=== PATIENT | male | born 1945 | race Caucasian/White ===

== ENCOUNTER → 2016-08-01 | Outpatient (CLI) | payer MEDICARE, BC | LOC: MW.CHORTHO 08:00 | PROVIDERS: ATTEND Physician Assistant | DX: M75.41 Impingement syndrome of right shoulder (principal); M75.42 Impingement syndrome of left shoulder; M12.812 Other specific arthropathies, not elsewhere classified, left shoulder; M12.811 Other specific arthropathies, not elsewhere classified, right shoulder | CPT/HCPCS: 20610-50; G0463; J1040 ==

== ENCOUNTER → 2016-08-06 | Outpatient (CLI) | payer MEDICARE, BC | LOC: MW.CHUR 11:16 | PROVIDERS: ATTEND Urology | DX: N42.9 Disorder of prostate, unspecified (principal); N40.0 Benign prostatic hyperplasia without lower urinary tract symptoms | CPT/HCPCS: 36415; 84153; G0463 ==

== ENCOUNTER 2016-09-24 09:51 | Observation (INO) | payer MEDICARE, BC ==
[2016-09-24] MEDS ORDERED: Sodium Chloride 0.9% 1,000 ML IV ONE ×2 (10:22→12:45)
[2016-09-24 11:15] LABS: CHLORIDE,CL 109 mmol/L (98-110); SODIUM,NA 140 mmol/L (136-146)
--- NOTE | 2016-09-24 11:53 | EDM.PDOC ---
ED HPI GENERAL MEDICAL PROBLEM - General Chief Complaint: Gastrointestinal Problem Stated Complaint: BLEEDING FROM RECTUM Time Seen by Provider: 09/24/16 11:30 Source of Information: Reports: Patient History Limitations: Reports: No Limitations - History of Present Illness INITIAL COMMENTS - FREE TEXT/NARRATIVE: History of present illness: 70-year-old male comes in complaining of rectal bleeding. Patient indicates that he started having bloody stools, and that he is on medicine that could be causing this. Patient is on Plavix and does take aspirin daily secondary to stents. Review of systems: As per history of present illness and below otherwise all systems reviewed and negative. Past medical history: As per history of present illness and as reviewed below otherwise noncontributory. Surgical history: As per history of present illness and as reviewed below otherwise noncontributory. Social history: No reported history of drug or alcohol abuse. Family history: As per history of present illness and as reviewed below otherwise noncontributory. Physical exam: HEENT: Atraumatic, normocephalic, pupils reactive, negative for conjunctival pallor or scleral icterus, mucous membranes moist, throat clear, neck supple, nontender, trachea midline. Lungs: Clear to auscultation, breath sounds equal bilaterally, chest nontender. Heart: S1S2, regular, negative for clicks, rubs, or JVD. Abdomen: Soft, nondistended, nontender. Negative for masses or hepatosplenomegaly. Negative for costovertebral tenderness. Pelvis: Stable nontender. Genitourinary: Deferred. Rectal: Deferred. Extremities: Atraumatic, negative for cords or calf pain. Neurovascular unremarkable. Neuro: Awake, alert, oriented. Cranial nerves II through XII unremarkable. Cerebellum unremarkable. Motor and sensory unremarkable throughout. Exam nonfocal. Assessment is benign save the subjective complaint as noted in history of present illness. Patient ability to the bathroom a hat was placed and melena's stool and radha blood obtained. Discussed with patient if this was normal patient seemed confused and indicated he had not had a bowel movement. Patient is anticoagulated secondary to stents 3. Diagnostics: [CBC, CMP, type and screen] Therapeutics: [] Impression: [GI bleed] Plan: [Admit to hospitalist consult surgery] Definitive disposition and diagnosis as appropriate pending reevaluation and review of above. - Related Data Allergies Allergy/AdvReac Type Severity Reaction Status Date / Time No Known Allergies Allergy Verified 09/24/16 10:36 Home Meds: Home Meds Atenolol [Atenolol] 1 tab PO DAILY 01/13/16 [History] Clopidogrel Bisulfate [Clopidogrel] 1 tab PO DAILY 01/13/16 [History] Finasteride [Proscar] 1 tab PO DAILY 01/13/16 [History] Isosorbide Mononitrate [Imdur] 1 tab PO DAILY 01/13/16 [History] Lisinopril 1 tab PO DAILY 01/13/16 [History] Simvastatin [Zocor] 1 tab PO BEDTIME 01/13/16 [History] Tamsulosin [Flomax] 1 tab PO DAILY 01/13/16 [History] Aspirin [Lucia Chewable] 1 tab PO DAILY 09/24/16 [History] Past Medical History Cardiovascular History: Reports: High Cholesterol, Hypertension Genitourinary History: Reports: BPH - Past Surgical History Cardiovascular Surgical History: Reports: Coronary Artery Stent Social & Family History - Family History Family Medical History: Noncontributory - Tobacco Use Smoking Status *Q: Current Every Day Smoker Years of Tobacco use: 50 Packs/Tins Daily: 1 Used Tobacco, but Quit: No Second Hand Smoke Exposure: Yes - Caffeine Use Caffeine Use: Reports: Coffee Caffeine Use Comment: 3 cups avg per day - Recreational Drug Use Recreational Drug Use: No ED ROS GENERAL - Review of Systems Review Of Systems: See Below (See history of present illness) ED EXAM, GI/ABD - Physical Exam Exam: See Below (See history of present illness) Course - Vital Signs Last Recorded V/S: Last Vital Signs Temp 36.4 C 09/24/16 10:36 Pulse 61 09/24/16 10:36 Resp 18 09/24/16 10:36 BP 103/59 L 09/24/16 10:36 Pulse Ox 97 09/24/16 10:36 - Orders/Labs/Meds Orders: Active Orders 24 hr Category Date Time Status TYPE AND SCREEN [BBK] Stat Lab 09/24/16 10:37 Results Labs: Laboratory Tests 09/24/16 09/24/16 09/24/16 Range/Units 10:37 10:37 10:37 WBC 5.87 (4.0-11.0) K/uL RBC 4.46 L (4.50-5.90) M/uL Hgb 13.7 (13.0-17.0) g/dL Hct 41.4 (38.0-50.0) % MCV 92.8 (80.0-98.0) fL MCH 30.7 (27.0-32.0) pg MCHC 33.1 (31.0-37.0) g/dL RDW Std Deviation 50.3 (28.0-62.0) fl RDW Coeff of Aidee 15 (11.0-15.0) % Plt Count 165 (150-400) K/uL MPV 9.80 (7.40-12.00) fL Neut % (Auto) 64.3 (48.0-80.0) % Lymph % (Auto) 25.9 (16.0-40.0) % [place] % (Auto) 7.7 (0.0-15.0) % Eos % (Auto) 1.4 (0.0-7.0) % Baso % (Auto) 0.7 (0.0-1.5) % Neut # (Auto) 3.8 (1.4-5.7) K/uL Lymph # (Auto) 1.5 (0.6-2.4) K/uL [place] # (Auto) 0.5 (0.0-0.8) K/uL Eos # (Auto) 0.1 (0.0-0.7) K/uL Baso # (Auto) 0.0 (0.0-0.1) K/uL Nucleated RBC % 0.0 /100WBC Nucleated RBCs # 0 K/uL Sodium 140 (136-146) mmol/L Potassium 4.3 (3.5-5.1) mmol/L Chloride 109 (98-110) mmol/L Carbon Dioxide 26 (21-31) mmol/L BUN 22 (6.0-23.0) mg/dL Creatinine 0.8 (0.6-1.5) mg/dL Est Cr Clr Drug Dosing 88.90 mL/min Estimated GFR (MDRD) > 60.0 ml/min Glucose 97 (60-110) mg/dL Calcium 8.3 L (8.8-10.8) mg/dL Total Bilirubin 0.3 (0.1-1.5) mg/dL AST 19 (5-40) IU/L ALT 17 (8-54) IU/L Alkaline Phosphatase 83 (40-150) Total Protein 6.0 (6.0-8.0) g/dL Albumin 3.7 (3.4-4.8) g/dL Globulin 2.3 (2.0-3.5) g/dL Albumin/Globulin Ratio 1.6 (1.3-2.8) Blood Type O POSITIVE Meds: Medications Discontinued Medications Generic Name Dose Route Start Last Admin Trade Name Sdq PRN Reason Stop Dose Admin Sodium Chloride 1,000 mls @ 999 mls/hr 09/24/16 10:22 09/24/16 10:56 Normal Saline IV 09/24/16 11:22 999 mls/hr STAT ONE Administration Departure - Departure Time of Disposition: 11:54 Disposition: Admitted As Inpatient 64 Condition: Good Clinical Impression: Bleeding per rectum - Discharge Information Forms: ED Department Discharge - My Orders Last 24 Hours: My Active Orders 09/24/16 10:37 TYPE AND SCREEN [BBK] Stat - Assessment/Plan Last 24 Hours: My Active Orders 09/24/16 10:37 TYPE AND SCREEN [BBK] Stat
[2016-09-24] MEDS ORDERED: Pantoprazole 40 MG Vial IVPUSH ONE (12:43)
[2016-09-24] MEDS ORDERED: Pantoprazole 80 MG in Sodium Chloride 0.9% 100 ML IV SCH ×3 (12:45→21:00)
--- NOTE | 2016-09-24 14:44 | PCM.HP ---
<Colleen Vásquez - Last Filed: 09/24/16 15:15> H&P History of Present Illness - General Date of Service: 09/24/16 - History of Present Illness Initial Comments - Free Text/Narative: 70 yo male with history of CAD s/p 3 stent placement who is taking plavix and asa admitted for GIB. He states around 10 pm he had noticed rectal bleeding that was persistent. This is his first episode. He smokes 1 ppd of cigarettes for the past 50 years. He does not drink alcohol or use illicit drugs. In the ED he was started on IVF and protonix drip. His Hb 13.7 Hct 41.4. bmp unremakable. He does not have fever, chills, pallor, chest pain, palpitations, sob, n/v/d or other pertinent symptoms. - Related Data Allergies/Adverse Reactions: Allergies Allergy/AdvReac Type Severity Reaction Status Date / Time No Known Allergies Allergy Verified 09/24/16 10:36 Home Medications: Home Meds Atenolol [Atenolol] 25 mg PO DAILY 01/13/16 [History] Clopidogrel Bisulfate [Clopidogrel] 75 mg PO DAILY 01/13/16 [History] Finasteride [Proscar] 5 mg PO DAILY 01/13/16 [History] Isosorbide Mononitrate [Imdur] 30 mg PO DAILY 01/13/16 [History] Lisinopril 5 mg PO DAILY 01/13/16 [History] Simvastatin [Zocor] 10 mg PO BEDTIME 01/13/16 [History] Tamsulosin [Flomax] 0.4 mg PO DAILY 01/13/16 [History] Aspirin [Lucia Chewable] 81 mg PO DAILY 09/24/16 [History] Past Medical History HEENT History: Reports: Impaired Vision Cardiovascular History: Reports: High Cholesterol, Hypertension Genitourinary History: Reports: BPH - Past Surgical History Cardiovascular Surgical History: Reports: Coronary Artery Stent Social & Family History - Family History Family Medical History: Noncontributory - Tobacco Use Smoking Status *Q: Current Every Day Smoker Years of Tobacco use: 50 Packs/Tins Daily: 1 Used Tobacco, but Quit: No Second Hand Smoke Exposure: No - Caffeine Use Caffeine Use: Reports: Coffee Caffeine Use Comment: 3 cups avg per day - Recreational Drug Use Recreational Drug Use: No H&P Review of Systems - Review of Systems: Review Of Systems: See Below General: Reports: No Symptoms HEENT: Reports: No Symptoms Pulmonary: Reports: No Symptoms Cardiovascular: Reports: No Symptoms Gastrointestinal: Reports: Bloody Stool, Hematochezia. Denies: Abdominal Pain, Anorexia, Black Stool, Constipation, Diarrhea, Hematemesis, Melena Genitourinary: Reports: No Symptoms Musculoskeletal: Reports: No Symptoms Skin: Reports: No Symptoms Psychiatric: Reports: No Symptoms Neurological: Reports: No Symptoms Exam - Exam Exam: See Below - Vital Signs Vital Signs: Last Vital Signs Temp 96 F 09/24/16 14:00 Pulse 47 L 09/24/16 14:00 Resp 18 09/24/16 14:00 BP 141/66 H 09/24/16 14:00 Pulse Ox 97 09/24/16 14:00 Weight: 75.07 kg - Exam General: Alert, Oriented HEENT: Conjunctiva Clear, EOMI Neck: Supple, Trachea Midline Lungs: Normal Respiratory Effort, Decreased Breath Sounds Cardiovascular: Regular Rate, Regular Rhythm Abdomen: Normal Bowel Sounds, Soft Back Exam: Normal Inspection, Full Range of Motion Extremities: Normal Inspection Skin: Warm, Dry, Intact Neurological: Cranial Nerves Intact - Patient Data Result Diagrams: 09/24/16 10:37 09/24/16 10:37 *Q Meaningful Use (ADM) - VTE *Q VTE Criteria *Q: - Stroke *Q Stroke Criteria *Q: - AMI *Q AMI Criteria *Q: Problem List Initiated/Reviewed/Updated: Yes Orders Last 24hrs: Active Orders 24 hr Category Date Time Status Pantoprazole [ProTONIX IV] 80 mg Med 09/24/16 13:00 Active Sodium Chloride 0.9% [Normal Saline] 100 ml IV Q10H Sodium Chloride 0.9% [Normal Saline] 1,000 ml Med 09/24/16 12:45 Active IV STAT Medication Orders Sodium Chloride (Normal Saline) 1,000 mls @ 100 mls/hr IV STAT ONE Stop: 09/24/16 22:44 Last Admin: 09/24/16 12:59 Dose: 100 mls/hr Pantoprazole Sodium 80 mg/ (Sodium Chloride) 100 mls @ 10 mls/hr IV Q10H [facility] Last Admin: 09/24/16 13:23 Dose: 10 mls/hr Assessment/Plan Comment:: 70 yo male admitted for GIB NPO continue IVF and protonix Hold Plavix and aspirin may resume home medications General surgery consulted for possible colonoscopy: dr. RIVERA <Brayan Sutherland - Last Filed: 09/24/16 18:24> H&P History of Present Illness - History of Present Illness Initial Comments - Free Text/Narative: I performed a history and physical examination of the patient and I have discussed the management with the resident. I have reviewed the residents note and agree with the documented findings and plan of care. Exam - Vital Signs Vital Signs: Last Vital Signs Temp 35.6 C 09/24/16 15:57 Pulse 48 L 09/24/16 15:57 Resp 20 09/24/16 15:57 BP 114/70 09/24/16 15:57 Pulse Ox 97 09/24/16 15:57 - Patient Data Result Diagrams: 09/24/16 10:37 09/24/16 10:37 *Q Meaningful Use (ADM) - VTE *Q VTE Criteria *Q: - Stroke *Q Stroke Criteria *Q: - AMI *Q AMI Criteria *Q: Orders Last 24hrs: Active Orders 24 hr Category Date Time Status Patient Status [ADT] Routine ADT 09/24/16 14:54 Active Antiembolic Devices [RC] PER UNIT ROUTINE Care 09/24/16 14:53 Active Antiembolic Devices [RC] PER UNIT ROUTINE Care 09/24/16 14:58 Active Notify Provider Consults [RC] ASDIRECTED Care 09/24/16 14:58 Active Oxygen Therapy [RC] PRN Care 09/24/16 14:49 Active Oxygen Therapy [RC] PRN Care 09/24/16 14:54 Active Pulse Oximetry [RC] PRN Care 09/24/16 14:51 Active Up ad Nelly [RC] ASDIRECTED Care 09/24/16 14:54 Active VTE/DVT Education [RC] PER UNIT ROUTINE Care 09/24/16 14:54 Active Vital Signs [RC] Q4H Care 09/24/16 14:49 Active Consult to Physician [CONS] Routine Cons 09/24/16 14:54 Active Nothing per Oral Now Diet [DIET] Diet 09/24/16 Dinner Active BASIC METABOLIC PANEL,BMP [CHEM] AM Lab 09/25/16 05:11 Ordered BASIC METABOLIC PANEL,BMP [CHEM] AM Lab 09/26/16 05:11 Ordered BASIC METABOLIC PANEL,BMP [CHEM] AM Lab 09/27/16 05:11 Ordered CBC WITH AUTO DIFF [HEME] AM Lab 09/25/16 05:11 Ordered CBC WITH AUTO DIFF [HEME] AM Lab 09/26/16 05:11 Ordered CBC WITH AUTO DIFF [HEME] AM Lab 09/27/16 05:11 Ordered CBC WITH AUTO DIFF [HEME] Routine Lab 09/24/16 19:00 Ordered Acetaminophen [Tylenol] Med 09/24/16 14:48 Active 650 mg PO Q4H PRN Atenolol [Tenormin] Med 09/25/16 09:00 Active 25 mg PO DAILY Finasteride [Proscar] Med 09/25/16 09:00 Active 5 mg PO DAILY Isosorbide Mononitrate [Imdur] Med 09/25/16 09:00 Active 30 mg PO DAILY Levofloxacin/Dextrose 5%-Water [Levaquin in D5W 500 MG/ Med 09/24/16 17:15 Active 100 ML] 500 mg Premix Bag 1 bag IV Q24H Lisinopril [Prinivil] Med 09/25/16 09:00 Active 5 mg PO DAILY Morphine Med 09/24/16 14:54 Active 2 mg IVPUSH Q2H PRN Ondansetron [Zofran ODT] Med 09/24/16 14:54 Active 4 mg PO Q6H PRN Ondansetron [Zofran] Med 09/24/16 14:48 Active 4 mg IVPUSH Q4H PRN Pantoprazole [ProTONIX IV] 80 mg Med 09/24/16 23:00 Active Sodium Chloride 0.9% [Normal Saline] 100 ml IV Q10H Sodium Chloride 0.9% [Normal Saline] 1,000 ml Med 09/24/16 15:00 Active IV ASDIRECTED Sodium Chloride 0.9% [Normal Saline] 1,000 ml Med 09/24/16 12:45 Active IV STAT Tamsulosin [Flomax] Med 09/25/16 09:00 Active 0.4 mg PO DAILY Temazepam [Restoril] Med 09/24/16 14:54 Active 15 mg PO BEDTIME PRN metroNIDAZOLE/Normal Saline [Flagyl 500 MG in NS 100 ML Med 09/24/16 17:15 Active ] 500 mg Premix Bag 1 bag IV Q6H oxyCODONE Med 09/24/16 14:54 Active 5 mg PO Q4H PRN Sequential Compression Device [OM.PC] Per Unit Routine Oth 09/24/16 14:52 Ordered Sequential Compression Device [OM.PC] Per Unit Routine Oth 09/24/16 14:56 Ordered VTE Pharmacological Contraindications [AST] Per Unit Oth 09/24/16 14:54 Ordered Routine Resuscitation Status Routine Resus Stat 09/24/16 14:54 Ordered Medication Orders Acetaminophen (Tylenol) 650 mg PO Q4H PRN PRN Reason: Pain (Mild 1-3)/fever Atenolol (Tenormin) 25 mg PO DAILY [facility] Finasteride (Proscar) 5 mg PO DAILY [facility] Sodium Chloride (Normal Saline) 1,000 mls @ 100 mls/hr IV STAT ONE Stop: 09/24/16 22:44 Last Admin: 09/24/16 12:59 Dose: 100 mls/hr Sodium Chloride (Normal Saline) 1,000 mls @ 125 mls/hr IV ASDIRECTED [facility] Last Admin: 09/24/16 15:27 Dose: 125 mls/hr Pantoprazole Sodium 80 mg/ (Sodium Chloride) 100 mls @ 10 mls/hr IV Q10H [facility] Levofloxacin/Dextrose 500 mg/ (Premix) 100 mls @ 100 mls/hr IV Q24H [facility] Metronidazole 500 mg/ Premix 100 mls @ 100 mls/hr IV Q6H [facility] Last Admin: 09/24/16 17:32 Dose: 100 mls/hr Isosorbide Mononitrate (Imdur) 30 mg PO DAILY [facility] Lisinopril (Prinivil) 5 mg PO DAILY [facility] Morphine Sulfate (Morphine) 2 mg IVPUSH Q2H PRN PRN Reason: Pain (severe 7-10) Stop: 09/25/16 14:57 Ondansetron HCl (Zofran) 4 mg IVPUSH Q4H PRN PRN Reason: Nausea Ondansetron HCl (Zofran Odt) 4 mg PO Q6H PRN PRN Reason: nausea, able to take PO Oxycodone HCl (Oxycodone) 5 mg PO Q4H PRN PRN Reason: Pain (moderate 4-6) Tamsulosin HCl (Flomax) 0.4 mg PO DAILY [facility] Temazepam (Restoril) 15 mg PO BEDTIME PRN PRN Reason: Sleep
[2016-09-24] MEDS ORDERED: Ondansetron 4 MG/2 ML SDV IVPUSH PRN (14:48)
[2016-09-24] MEDS ORDERED: Acetaminophen 325 MG Tab PO PRN (14:48)
[2016-09-24] MEDS ORDERED: oxyCODONE 5 MG Tab PO PRN (14:54)
[2016-09-24] MEDS ORDERED: Temazepam 15 MG Cap PO PRN (14:54)
[2016-09-24] MEDS ORDERED: Morphine 2 MG/ML Syringe IVPUSH PRN (14:54)
[2016-09-24] MEDS ORDERED: Ondansetron 4 MG Tab.DIS PO PRN (14:54)
[2016-09-24] MEDS: Sodium Chloride 0.9% 1,000 ML IV SCH ×2 (15:27→21:35)
[2016-09-24] MEDS ORDERED: Levofloxacin/Dextrose 5%-Water 500 MG in Premix Bag 1 BAG IV SCH (17:15)
[2016-09-24] MEDS: metroNIDAZOLE/Normal Saline 500 MG in Premix Bag 1 BAG IV SCH ×2 (17:32→22:41)
[2016-09-24] MEDS: Pantoprazole 80 MG in Sodium Chloride 0.9% 100 ML IV SCH (22:41)
--- NOTE | 2016-09-25 00:27 | CONS ---
DATE OF CONSULTATION: 09/24/2016 DATE OF : 1945 PRIMARY CARE PHYSICIAN: Rui Packer MD Consult was called. The patient was seen shortly after concerning present GI bleeding. HISTORY OF PRESENT ILLNESS: The patient is a 70-year-old gentleman, who has significant coronary artery disease and with stent placement x3. He is currently taking Plavix and aspirin. He was noted to have rectal bleeding 12 hours ago and the patient remarked it is a bright red blood per rectum, and denied any pain whatsoever. No abdominal pain. No chest pain, no rectal pain, and never having happened before. On a pain scale of 1-10, the patient's pain is zero and no radiation, and has never happened before. The patient did not have any shortness of breath, chest pain, or syncope. The patient is totally awake throughout the whole process and totally aware of what is going on. Twelve hours later, bleeding not stopped and the patient seek help in the emergency room. In the emergency room, his blood was worked up and the patient was subsequently admitted to the hospitalist service and Surgery was then consulted. The patient currently denied any pain whatsoever, denied short of breath, and denied prior episode. PAST MEDICAL HISTORY: Significant for no diabetes, CT, CVA, or hypertension. The patient does have cardiac history and had stent x3 placement. PAST SURGICAL HISTORY: No abdominal surgery. ALLERGIES: Please refer nursing for details. MEDICATION: Please refer nursing for details. PHYSICAL EXAMINATION: GENERAL: A very pleasant, nice gentleman, in no acute distress. HEENT: Normocephalic, atraumatic. Sclerae anicteric. LUNGS: Clear to auscultation. HEART: Regular rate and rhythm. ABDOMEN: Soft, nondistended. No pulsating, tender midline abdominal structure. No surgical scar. Small umbilical hernia. Active bowel sounds in all 4 quadrants. SKIN: Intact and nontender. LABORATORY DATA: Upon consultation, H and H are 11 and 43 and platelets are 167. INR is pending. IMPRESSION: Bright red blood per rectum, likely diverticular bleeding on top of Plavix and aspirin, and patient will likely continue the bleeding and/or could be upper gastrointestinal bleeding because of Plavix and aspirin. At the time of examination and history, likely is lower gastrointestinal bleeding. The patient was seen and admitted to the hospital, had two more large bloody bowel movement and that is also classic for diverticular bleeding. We will treat as bleeding protocol, two large-bore IV access and avoid all anticoagulation. Check H and H every 12 hours and check strict in and out and weight of patient, aggressive resuscitation, type and cross 2 RBC ready and there are also some studies suggest maybe plasma. Two units may be able to help to reverse Plavix or aspirin, which help to stop the bleeding and all in aspects if bleeding is not able to be stopped and after 6 units of transfusion, the patient will probably need surgery and since we are not able to localize the bleeding is from the left segment or right segment or transverse segment, the patient would benefit to have a total colectomy. So situation like that the patient may benefit to transfer to a tertiary care center where diagnostic imaging can be done with either bleeding scan or tag RBC and to localize the bleeding segment or even embolize the bleeding segment. All the plan has been discussed with the patient. For a time being, we will try to hold off aspirin and Plavix and continue GI bleeding protocol and follow the patient with you closely. Plan has been discussed with Dr. Brayan Sutherland, the primary care provider as well as the hospitalist attending. Thanks for the consult and reference and to take care of this nice gentleman. CHAVEZ / CARLITOS /[id number]
[2016-09-25 02:15] LABS: CHLORIDE,CL 112 mmol/L (98-110); SODIUM,NA 140 mmol/L (136-146)
[2016-09-25] MEDS: metroNIDAZOLE/Normal Saline 500 MG in Premix Bag 1 BAG IV SCH (05:07)
--- NOTE | 2016-09-25 08:28 | PCM.DCSUM1 ---
<Colleen Vásquez - Last Filed: 09/25/16 08:32> Discharge Summary - Hospital Course Free Text/Narrative:: 70-year-old male with significant CAD status post 3 stent placement admitted for GI bleed most likely diverticular bleed. He has been having episodes of persistent rectal bleeding for past 2 days that has not stopped. He did not have any fever or, chills, abdominal pain, nausea vomiting diarrhea, chest pain , shortness of breath, palpitations, pallor, dizziness, syncope, lightheadedness or other pertinent symptoms. He has been on Plavix and aspirin which was held. On admission his hemoglobin over hematocrit was 13.7 and 41.4. He was kept n.p.o., Protonix IV and IV fluids initiated along with IV cipro and IV flagyl. General surgery consult in for GI bleed. They recommended to check CBC every 12 hours and possibly transfer to tertiary care for tagged RBC or leading scan to determine the source of bleeding if it's persistent. His vital signs remained stable and his hemoglobin this morning is 10.2. He is being transfused 2 units of RBCs and transferred to higher level of care. Patient and family has requested [facility] [place]. Dr. daniel the hosptilist kindly accepted the patient. - Discharge Data Discharge Date: 09/25/16 Discharge Disposition: DC/Tfer to Acute Hospital 02 Condition: Fair - Patient Summary/Data Consults: Consultations 09/24/16 14:54 Consult to Physician [CONS] Routine - Discharge Plan Home Medications: Home Meds Atenolol [Atenolol] 25 mg PO DAILY 01/13/16 [History] Clopidogrel Bisulfate [Clopidogrel] 75 mg PO DAILY 01/13/16 [History] Finasteride [Proscar] 5 mg PO DAILY 01/13/16 [History] Isosorbide Mononitrate [Imdur] 30 mg PO DAILY 01/13/16 [History] Lisinopril 5 mg PO DAILY 01/13/16 [History] Simvastatin [Zocor] 10 mg PO BEDTIME 01/13/16 [History] Tamsulosin [Flomax] 0.4 mg PO DAILY 01/13/16 [History] Aspirin [Lucia Chewable] 81 mg PO DAILY 09/24/16 [History] Forms: ED Department Discharge Referrals: Rui Packer MD [Primary Care Provider] - - General Info Date of Service: 09/25/16 Functional Status: Reports: ambulating, urinating - Review of Systems General: Reports: No Symptoms HEENT: Reports: no symptoms Pulmonary: Reports: no symptoms Cardiovascular: Reports: No Symptoms Gastrointestinal: Reports: No symptoms Genitourinary: Reports: no symptoms Musculoskeletal: Reports: no symptoms Skin: Reports: no symptoms Neurological: Reports: No Symptoms Psychiatric: Reports: no symptoms - Patient Data Vitals - Most Recent: Last Vital Signs Temp 97.6 F 09/25/16 04:00 Pulse 68 09/25/16 04:00 Resp 16 09/25/16 04:00 BP 126/75 09/25/16 04:00 Pulse Ox 96 09/25/16 04:00 Weight - Most Recent: 74.48 kg I&O - Last 24 hours: Intake & Output 09/24/16 09/25/16 09/25/16 22:59 06:59 14:59 Intake Total 1400 200 Output Total 100 1650 Balance 1300 -1450 Lab Results - Last 24 hrs: Laboratory Results - last 24 hr 09/24/16 09/25/16 09/25/16 Range/Units 18:59 01:45 01:45 WBC 5.12 5.34 (4.0-11.0) K/uL RBC 3.77 L 3.27 L (4.50-5.90) M/uL Hgb 11.5 L 10.1 L (13.0-17.0) g/dL Hct 34.9 L 31.0 L (38.0-50.0) % MCV 92.6 94.8 (80.0-98.0) fL MCH 30.5 30.9 (27.0-32.0) pg MCHC 33.0 32.6 (31.0-37.0) g/dL RDW Std Deviation 50.9 47.7 (28.0-62.0) fl RDW Coeff of Aidee 15 14 (11.0-15.0) % Plt Count 137 L 135 L (150-400) K/uL MPV 9.40 10.00 (7.40-12.00) fL Neut % (Auto) 58.3 61.4 (48.0-80.0) % Lymph % (Auto) 31.3 28.1 (16.0-40.0) % [place] % (Auto) 8.0 7.9 (0.0-15.0) % Eos % (Auto) 1.8 1.7 (0.0-7.0) % Baso % (Auto) 0.6 0.9 (0.0-1.5) % Neut # (Auto) 3.0 3.3 (1.4-5.7) K/uL Lymph # (Auto) 1.6 1.5 (0.6-2.4) K/uL [place] # (Auto) 0.4 0.4 (0.0-0.8) K/uL Eos # (Auto) 0.1 0.1 (0.0-0.7) K/uL Baso # (Auto) 0.0 0.1 (0.0-0.1) K/uL Nucleated RBC % 0.0 /100WBC Nucleated RBCs # 0 K/uL Sodium 140 (136-146) mmol/L Potassium 4.2 (3.5-5.1) mmol/L Chloride 112 H (98-110) mmol/L Carbon Dioxide 23 (21-31) mmol/L BUN 17 (6.0-23.0) mg/dL Creatinine 0.8 (0.6-1.5) mg/dL Est Cr Clr Drug Dosing 88.62 mL/min Estimated GFR (MDRD) > 60.0 ml/min Glucose 87 (60-110) mg/dL Calcium 7.3 L (8.8-10.8) mg/dL Magnesium (1.5-2.3) mEq/L 09/25/16 09/25/16 Range/Units 05:00 05:00 WBC 5.05 (4.0-11.0) K/uL RBC 3.33 L (4.50-5.90) M/uL Hgb 10.2 L (13.0-17.0) g/dL Hct 30.9 L (38.0-50.0) % MCV 92.8 (80.0-98.0) fL MCH 30.6 (27.0-32.0) pg MCHC 33.0 (31.0-37.0) g/dL RDW Std Deviation 50.4 (28.0-62.0) fl RDW Coeff of Aidee 15 (11.0-15.0) % Plt Count 136 L (150-400) K/uL MPV 10.10 (7.40-12.00) fL Neut % (Auto) 62.2 (48.0-80.0) % Lymph % (Auto) 29.3 (16.0-40.0) % [place] % (Auto) 6.3 (0.0-15.0) % Eos % (Auto) 1.6 (0.0-7.0) % Baso % (Auto) 0.6 (0.0-1.5) % Neut # (Auto) 3.1 (1.4-5.7) K/uL Lymph # (Auto) 1.5 (0.6-2.4) K/uL [place] # (Auto) 0.3 (0.0-0.8) K/uL Eos # (Auto) 0.1 (0.0-0.7) K/uL Baso # (Auto) 0.0 (0.0-0.1) K/uL Nucleated RBC % 0.0 /100WBC Nucleated RBCs # 0 K/uL Sodium (136-146) mmol/L Potassium (3.5-5.1) mmol/L Chloride (98-110) mmol/L Carbon Dioxide (21-31) mmol/L BUN (6.0-23.0) mg/dL Creatinine (0.6-1.5) mg/dL Est Cr Clr Drug Dosing mL/min Estimated GFR (MDRD) ml/min Glucose (60-110) mg/dL Calcium (8.8-10.8) mg/dL Magnesium 1.5 (1.5-2.3) mEq/L Med Orders - Current: Current Medications Acetaminophen (Tylenol) 650 mg PO Q4H PRN PRN Reason: Pain (Mild 1-3)/fever Atenolol (Tenormin) 25 mg PO DAILY [facility] Finasteride (Proscar) 5 mg PO DAILY [facility] Sodium Chloride (Normal Saline) 1,000 mls @ 125 mls/hr IV ASDIRECTED [facility] Last Admin: 09/24/16 21:35 Dose: 125 mls/hr Pantoprazole Sodium 80 mg/ (Sodium Chloride) 100 mls @ 10 mls/hr IV Q10H [facility] Last Admin: 09/24/16 22:41 Dose: 10 mls/hr Levofloxacin/Dextrose 500 mg/ (Premix) 100 mls @ 100 mls/hr IV Q24H [facility] Last Admin: 09/24/16 18:36 Dose: 100 mls/hr Metronidazole 500 mg/ Premix 100 mls @ 100 mls/hr IV Q6H [facility] Last Admin: 09/25/16 05:07 Dose: 100 mls/hr Isosorbide Mononitrate (Imdur) 30 mg PO DAILY [facility] Lisinopril (Prinivil) 5 mg PO DAILY [facility] Morphine Sulfate (Morphine) 2 mg IVPUSH Q2H PRN PRN Reason: Pain (severe 7-10) Stop: 09/25/16 14:57 Nicotine (Habitrol) 21 mg TRDERM DAILY [facility] Ondansetron HCl (Zofran) 4 mg IVPUSH Q4H PRN PRN Reason: Nausea Ondansetron HCl (Zofran Odt) 4 mg PO Q6H PRN PRN Reason: nausea, able to take PO Oxycodone HCl (Oxycodone) 5 mg PO Q4H PRN PRN Reason: Pain (moderate 4-6) Tamsulosin HCl (Flomax) 0.4 mg PO DAILY [facility] Temazepam (Restoril) 15 mg PO BEDTIME PRN PRN Reason: Sleep Discontinued Medications Sodium Chloride (Normal Saline) 1,000 mls @ 999 mls/hr IV STAT ONE Stop: 09/24/16 11:22 Last Admin: 09/24/16 10:56 Dose: 999 mls/hr Pantoprazole Sodium 80 mg/ (Sodium Chloride) 100 mls @ 10 mls/hr IV .Continuous [facility] Sodium Chloride (Normal Saline) 1,000 mls @ 100 mls/hr IV STAT ONE Stop: 09/24/16 22:44 Last Admin: 09/24/16 12:59 Dose: 100 mls/hr Pantoprazole Sodium 80 mg/ (Sodium Chloride) 100 mls @ 10 mls/hr IV Q10H [facility] Last Admin: 09/24/16 13:23 Dose: 10 mls/hr Pantoprazole Sodium 80 mg/ (Sodium Chloride) 100 mls @ 10 mls/hr IV BID [facility] Pantoprazole Sodium (Protonix Iv) 80 mg IVPUSH .BOLUS ONE Stop: 09/24/16 12:44 Last Admin: 09/24/16 13:05 Dose: 80 mg - Exam General: Reports: alert, oriented, cooperative, no acute distress HEENT: Reports: Pupils equal, EOMI Neck: Reports: supple Lungs: Reports: Decreased breath sounds Cardiovascular: Reports: Regular Rate, Regular Rhythm Abdomen: Reports: bowel sounds present, soft Back Exam: Reports: Normal Inspection, Full Range of Motion Extremities: Reports: no edema Skin: Reports: warm, dry, intact Neurological: Reports: no new focal deficit Psy/Mental Status: Reports: alert, normal affect, normal mood *Q Meaningful Use (DIS) - VTE *Q VTE Criteria *Q: VTE Pharmacological Contraindications *Q: Active Hemorrhage - Stroke *Q Stroke Criteria *Q: - AMI *Q AMI Criteria *Q: <Brayan Sutherland - Last Filed: 09/25/16 09:14> Discharge Summary - Hospital Course Free Text/Narrative:: I was present with the resident during history and examination. I discussed the case with the resident and agree with the findings and plan as documented in the residents note. - Patient Summary/Data Consults: Consultations 09/24/16 14:54 Consult to Physician [CONS] Routine - Patient Data Vitals - Most Recent: Last Vital Signs Temp 36.4 C 09/25/16 08:50 Pulse 63 09/25/16 09:02 Resp 16 09/25/16 08:50 BP 123/60 09/25/16 09:02 Pulse Ox 96 09/25/16 04:00 I&O - Last 24 hours: Intake & Output 09/24/16 09/25/16 09/25/16 22:59 06:59 14:59 Intake Total 1400 200 0 Output Total 100 1650 Balance 1300 -1450 0 Lab Results - Last 24 hrs: Laboratory Results - last 24 hr 09/24/16 09/25/16 09/25/16 Range/Units 18:59 01:45 01:45 WBC 5.12 5.34 (4.0-11.0) K/uL RBC 3.77 L 3.27 L (4.50-5.90) M/uL Hgb 11.5 L 10.1 L (13.0-17.0) g/dL Hct 34.9 L 31.0 L (38.0-50.0) % MCV 92.6 94.8 (80.0-98.0) fL MCH 30.5 30.9 (27.0-32.0) pg MCHC 33.0 32.6 (31.0-37.0) g/dL RDW Std Deviation 50.9 47.7 (28.0-62.0) fl RDW Coeff of Aidee 15 14 (11.0-15.0) % Plt Count 137 L 135 L (150-400) K/uL MPV 9.40 10.00 (7.40-12.00) fL Neut % (Auto) 58.3 61.4 (48.0-80.0) % Lymph % (Auto) 31.3 28.1 (16.0-40.0) % [place] % (Auto) 8.0 7.9 (0.0-15.0) % Eos % (Auto) 1.8 1.7 (0.0-7.0) % Baso % (Auto) 0.6 0.9 (0.0-1.5) % Neut # (Auto) 3.0 3.3 (1.4-5.7) K/uL Lymph # (Auto) 1.6 1.5 (0.6-2.4) K/uL [place] # (Auto) 0.4 0.4 (0.0-0.8) K/uL Eos # (Auto) 0.1 0.1 (0.0-0.7) K/uL Baso # (Auto) 0.0 0.1 (0.0-0.1) K/uL Nucleated RBC % 0.0 /100WBC Nucleated RBCs # 0 K/uL Sodium 140 (136-146) mmol/L Potassium 4.2 (3.5-5.1) mmol/L Chloride 112 H (98-110) mmol/L Carbon Dioxide 23 (21-31) mmol/L BUN 17 (6.0-23.0) mg/dL Creatinine 0.8 (0.6-1.5) mg/dL Est Cr Clr Drug Dosing 88.62 mL/min Estimated GFR (MDRD) > 60.0 ml/min Glucose 87 (60-110) mg/dL Calcium 7.3 L (8.8-10.8) mg/dL Magnesium (1.5-2.3) mEq/L 07/11/17 07/11/17 Range/Units 05:00 05:00 WBC 5.05 (4.0-11.0) K/uL RBC 3.33 L (4.50-5.90) M/uL Hgb 10.2 L (13.0-17.0) g/dL Hct 30.9 L (38.0-50.0) % MCV 92.8 (80.0-98.0) fL MCH 30.6 (27.0-32.0) pg MCHC 33.0 (31.0-37.0) g/dL RDW Std Deviation 50.4 (28.0-62.0) fl RDW Coeff of Aidee 15 (11.0-15.0) % Plt Count 136 L (150-400) K/uL MPV 10.10 (7.40-12.00) fL Neut % (Auto) 62.2 (48.0-80.0) % Lymph % (Auto) 29.3 (16.0-40.0) % [place] % (Auto) 6.3 (0.0-15.0) % Eos % (Auto) 1.6 (0.0-7.0) % Baso % (Auto) 0.6 (0.0-1.5) % Neut # (Auto) 3.1 (1.4-5.7) K/uL Lymph # (Auto) 1.5 (0.6-2.4) K/uL [place] # (Auto) 0.3 (0.0-0.8) K/uL Eos # (Auto) 0.1 (0.0-0.7) K/uL Baso # (Auto) 0.0 (0.0-0.1) K/uL Nucleated RBC % 0.0 /100WBC Nucleated RBCs # 0 K/uL Sodium (136-146) mmol/L Potassium (3.5-5.1) mmol/L Chloride (98-110) mmol/L Carbon Dioxide (21-31) mmol/L BUN (6.0-23.0) mg/dL Creatinine (0.6-1.5) mg/dL Est Cr Clr Drug Dosing mL/min Estimated GFR (MDRD) ml/min Glucose (60-110) mg/dL Calcium (8.8-10.8) mg/dL Magnesium 1.5 (1.5-2.3) mEq/L Med Orders - Current: Current Medications Acetaminophen (Tylenol) 650 mg PO Q4H PRN PRN Reason: Pain (Mild 1-3)/fever Atenolol (Tenormin) 25 mg PO DAILY [facility] Last Admin: 09/25/16 09:02 Dose: 25 mg Finasteride (Proscar) 5 mg PO DAILY [facility] Last Admin: 09/25/16 09:00 Dose: 5 mg Sodium Chloride (Normal Saline) 1,000 mls @ 125 mls/hr IV ASDIRECTED [facility] Last Admin: 09/24/16 21:35 Dose: 125 mls/hr Pantoprazole Sodium 80 mg/ (Sodium Chloride) 100 mls @ 10 mls/hr IV Q10H [facility] Last Admin: 09/25/16 08:59 Dose: 10 mls/hr Levofloxacin/Dextrose 500 mg/ (Premix) 100 mls @ 100 mls/hr IV Q24H [facility] Last Admin: 09/24/16 18:36 Dose: 100 mls/hr Metronidazole 500 mg/ Premix 100 mls @ 100 mls/hr IV Q6H [facility] Last Admin: 09/25/16 05:07 Dose: 100 mls/hr Isosorbide Mononitrate (Imdur) 30 mg PO DAILY [facility] Last Admin: 09/25/16 09:01 Dose: 30 mg Lisinopril (Prinivil) 5 mg PO DAILY [facility] Last Admin: 09/25/16 09:01 Dose: 5 mg Morphine Sulfate (Morphine) 2 mg IVPUSH Q2H PRN PRN Reason: Pain (severe 7-10) Stop: 09/25/16 14:57 Nicotine (Habitrol) 21 mg TRDERM DAILY [facility] Last Admin: 09/25/16 09:00 Dose: 21 mg Ondansetron HCl (Zofran) 4 mg IVPUSH Q4H PRN PRN Reason: Nausea Ondansetron HCl (Zofran Odt) 4 mg PO Q6H PRN PRN Reason: nausea, able to take PO Oxycodone HCl (Oxycodone) 5 mg PO Q4H PRN PRN Reason: Pain (moderate 4-6) Tamsulosin HCl (Flomax) 0.4 mg PO DAILY [facility] Last Admin: 09/25/16 09:00 Dose: 0.4 mg Temazepam (Restoril) 15 mg PO BEDTIME PRN PRN Reason: Sleep Discontinued Medications Sodium Chloride (Normal Saline) 1,000 mls @ 999 mls/hr IV STAT ONE Stop: 09/24/16 11:22 Last Admin: 09/24/16 10:56 Dose: 999 mls/hr Pantoprazole Sodium 80 mg/ (Sodium Chloride) 100 mls @ 10 mls/hr IV .Continuous [facility] Sodium Chloride (Normal Saline) 1,000 mls @ 100 mls/hr IV STAT ONE Stop: 09/24/16 22:44 Last Admin: 09/24/16 12:59 Dose: 100 mls/hr Pantoprazole Sodium 80 mg/ (Sodium Chloride) 100 mls @ 10 mls/hr IV Q10H [facility] Last Admin: 09/24/16 13:23 Dose: 10 mls/hr Pantoprazole Sodium 80 mg/ (Sodium Chloride) 100 mls @ 10 mls/hr IV BID [facility] Pantoprazole Sodium (Protonix Iv) 80 mg IVPUSH .BOLUS ONE Stop: 09/24/16 12:44 Last Admin: 09/24/16 13:05 Dose: 80 mg *Q Meaningful Use (DIS) - VTE *Q VTE Criteria *Q: - Stroke *Q Stroke Criteria *Q: - AMI *Q AMI Criteria *Q:
[2016-09-25] MEDS: Pantoprazole 80 MG in Sodium Chloride 0.9% 100 ML IV SCH (08:59)
[2016-09-25] MEDS ORDERED: Finasteride 5 MG Tab PO SCH (09:00)
[2016-09-25] MEDS ORDERED: Atenolol 25 MG Tab PO SCH (09:00)
[2016-09-25] MEDS ORDERED: Nicotine 21 MG/24 Hr Patch TRDERM SCH (09:00)
[2016-09-25] MEDS ORDERED: Tamsulosin 0.4 MG Cap.ER PO SCH (09:00)
[2016-09-25] MEDS ORDERED: Isosorbide Mononitrate 30 MG Tab.ER PO SCH (09:00)
[2016-09-25] MEDS ORDERED: Lisinopril 10 MG Tab PO SCH (09:00)
[2016-09-25 10:28] VITALS: BP 96/64
== END 2016-09-25 10:00 ==
LOC: MW.ED 09:51 → INTOOBSV 12:03 → MW.MS 12:03
PROVIDERS: ADMIT Internal Medicine; ATTEND Internal Medicine
PROC: 30233N1 Transfusion of Nonautologous Red Blood Cells into Peripheral Vein, Percutaneous Approach (ICD-10-PCS; principal; 2016-09-25)
DX: K92.1 Melena (principal); K92.2 Gastrointestinal hemorrhage, unspecified; I25.10 Atherosclerotic heart disease of native coronary artery without angina pectoris; I10 Essential (primary) hypertension; E78.00 Pure hypercholesterolemia, unspecified; F17.200 Nicotine dependence, unspecified, uncomplicated; Z79.82 Long term (current) use of aspirin; Z79.01 Long term (current) use of anticoagulants; Z79.899 Other long term (current) drug therapy; Z95.5 Presence of coronary angioplasty implant and graft
CPT/HCPCS: 36415; 36430; 80048; 80053; 83735; 85025; 86850; 86900; 86901; 86920; 86921; 86922; 93005; 96361; 96374; 96376; 99285; A9270; C9113; J1956; J7030; J7040; P9016; 96365; 96366; 96367; 96375; 99283; G0378

== ENCOUNTER 2016-10-01 13:39 | Observation (INO) | payer MEDICARE, BC ==
--- NOTE | 2016-10-01 13:57 | EDM.PDOC ---
ED HPI GENERAL MEDICAL PROBLEM - General Chief Complaint: General Stated Complaint: LIGHT HEADED Time Seen by Provider: 10/01/16 13:50 Source of Information: Reports: Patient History Limitations: Reports: No Limitations - History of Present Illness INITIAL COMMENTS - FREE TEXT/NARRATIVE: History of present illness: [] Review of systems: As per history of present illness and below otherwise all systems reviewed and negative. Past medical history: As per history of present illness and as reviewed below otherwise noncontributory. Surgical history: As per history of present illness and as reviewed below otherwise noncontributory. Social history: No reported history of drug or alcohol abuse. Family history: As per history of present illness and as reviewed below otherwise noncontributory. Physical exam: General: Well developed, well nourished in NAD HEENT: Atraumatic, normocephalic, pupils reactive, negative for conjunctival pallor or scleral icterus, mucous membranes moist, throat clear, neck supple, nontender, trachea midline. Lungs: Clear to auscultation, breath sounds equal bilaterally, chest nontender. Heart: S1S2, regular, negative for clicks, rubs, or JVD. Abdomen: Soft, nondistended, nontender. Negative for masses or hepatosplenomegaly. Negative for costovertebral tenderness. Pelvis: Stable nontender. Genitourinary: Deferred. Rectal: Deferred. Extremities: Atraumatic, negative for cords or calf pain. Neurovascular unremarkable. Neuro: Awake, alert, oriented. Cranial nerves II through XII unremarkable. Cerebellum unremarkable. Motor and sensory unremarkable throughout. Exam nonfocal. Diagnostics: [] Therapeutics: [] Impression: [] Plan: [] Definitive disposition and diagnosis as appropriate pending reevaluation and review of above. - Related Data Allergies Allergy/AdvReac Type Severity Reaction Status Date / Time No Known Allergies Allergy Verified 09/24/16 10:36 Home Meds: Home Meds Atenolol [Atenolol] 25 mg PO DAILY 01/13/16 [History] Clopidogrel Bisulfate [Clopidogrel] 75 mg PO DAILY 01/13/16 [History] Finasteride [Proscar] 5 mg PO DAILY 01/13/16 [History] Isosorbide Mononitrate [Imdur] 30 mg PO DAILY 01/13/16 [History] Lisinopril 5 mg PO DAILY 01/13/16 [History] Simvastatin [Zocor] 10 mg PO BEDTIME 01/13/16 [History] Tamsulosin [Flomax] 0.4 mg PO DAILY 01/13/16 [History] Aspirin [Lucia Chewable] 81 mg PO DAILY 09/24/16 [History] Past Medical History HEENT History: Reports: Impaired Vision Cardiovascular History: Reports: High Cholesterol, Hypertension Genitourinary History: Reports: BPH - Past Surgical History Cardiovascular Surgical History: Reports: Coronary Artery Stent Social & Family History - Family History Family Medical History: Noncontributory - Tobacco Use Smoking Status *Q: Current Every Day Smoker Years of Tobacco use: 50 Packs/Tins Daily: 1 Used Tobacco, but Quit: No Second Hand Smoke Exposure: No - Caffeine Use Caffeine Use: Reports: Coffee Caffeine Use Comment: 3 cups avg per day - Recreational Drug Use Recreational Drug Use: No ED ROS GENERAL - Review of Systems Review Of Systems: See Below (See history of present illness) ED EXAM, GENERAL - Physical Exam Exam: See Below (See history of present illness) Course - Vital Signs Last Recorded V/S: Last Vital Signs Temp 36.4 C 10/01/16 13:50 Pulse 72 10/01/16 13:50 Resp 18 10/01/16 13:50 BP 112/63 10/01/16 13:50 Pulse Ox 98 10/01/16 13:50 Departure - Discharge Information Forms: ED Department Discharge
--- NOTE | 2016-10-01 14:02 | EDM.PDOC ---
ED HPI GENERAL MEDICAL PROBLEM - General Chief Complaint: General Stated Complaint: LIGHT HEADED Time Seen by Provider: 10/01/16 13:50 Source of Information: Reports: Patient History Limitations: Reports: No Limitations - History of Present Illness INITIAL COMMENTS - FREE TEXT/NARRATIVE: History of present illness: []Patient has been feeling claustrophobic and like things are getting dark since 8:00 this morning. 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 Patient suffered a GI bleed last week and was transferred to [facility], [place] where colonoscopy was done and 3 polyps were removed. He was then taken off his Plavix and aspirin has not restarted it. Denies any bloody stools, chest pain, shortness of breath, headache or dizziness. Patient also notes that while he was in the hospital [facility], [place] he had a nicotine patch placed that he removed 4 days ago. He has been smoking approximate 10 cigarettes a day since he removed the patch/ Review of systems: As per history of present illness and below otherwise all systems reviewed and negative. Past medical history: As per history of present illness and as reviewed below otherwise noncontributory. Surgical history: As per history of present illness and as reviewed below otherwise noncontributory. Social history: No reported history of drug or alcohol abuse. Family history: As per history of present illness and as reviewed below otherwise noncontributory. Physical exam: General: Well developed, well nourished in NAD HEENT: Atraumatic, normocephalic, pupils reactive, negative for conjunctival pallor or scleral icterus, mucous membranes moist, throat clear, neck supple, nontender, trachea midline. Lungs: Clear to auscultation, breath sounds equal bilaterally, chest nontender. Heart: S1S2, regular, negative for clicks, rubs, or JVD. Abdomen: Soft, nondistended, nontender. Negative for masses or hepatosplenomegaly. Negative for costovertebral tenderness. Pelvis: Stable nontender. Genitourinary: Deferred. Rectal: Deferred. Extremities: Atraumatic, negative for cords or calf pain. Neurovascular unremarkable. Neuro: Awake, alert, oriented. Cranial nerves II through XII unremarkable. Cerebellum unremarkable. Motor and sensory unremarkable throughout. Exam nonfocal. Diagnostics: []EKG showing bigeminy rate 60s, H&H is stable at 10 and 33, chest x-ray negative Therapeutics: []IV fluid given for an episode of hypotension Impression: []Bradycardia, arrhythmia. Dr. Marrero from cardiology was consulted and saw the patient at bedside. His recommendation is to observe the patient stop atenolol Plan: []Admit to hospitalist for observation Definitive disposition and diagnosis as appropriate pending reevaluation and review of above. - Related Data Allergies Allergy/AdvReac Type Severity Reaction Status Date / Time No Known Allergies Allergy Verified 09/24/16 10:36 Home Meds: Home Meds Atenolol [Atenolol] 25 mg PO DAILY 01/13/16 [History] Clopidogrel Bisulfate [Clopidogrel] 75 mg PO DAILY 01/13/16 [History] Finasteride [Proscar] 5 mg PO DAILY 01/13/16 [History] Isosorbide Mononitrate [Imdur] 30 mg PO DAILY 01/13/16 [History] Lisinopril 5 mg PO DAILY 01/13/16 [History] Simvastatin [Zocor] 10 mg PO BEDTIME 01/13/16 [History] Tamsulosin [Flomax] 0.4 mg PO DAILY 01/13/16 [History] Aspirin [Lucia Chewable] 81 mg PO DAILY 09/24/16 [History] Past Medical History HEENT History: Reports: Impaired Vision Cardiovascular History: Reports: High Cholesterol, Hypertension Genitourinary History: Reports: BPH - Past Surgical History Cardiovascular Surgical History: Reports: Coronary Artery Stent Social & Family History - Family History Family Medical History: Noncontributory - Tobacco Use Smoking Status *Q: Current Every Day Smoker Years of Tobacco use: 50 Packs/Tins Daily: 0.5 Used Tobacco, but Quit: No Second Hand Smoke Exposure: No - Caffeine Use Caffeine Use: Reports: Coffee Caffeine Use Comment: 3 cups avg per day - Recreational Drug Use Recreational Drug Use: No ED ROS GENERAL - Review of Systems Review Of Systems: See Below (See history of present illness) ED EXAM, NEURO - Physical Exam Exam: See Below (See history of present illness) Course - Vital Signs Last Recorded V/S: Last Vital Signs Temp 36.4 C 10/01/16 13:50 Pulse 72 10/01/16 13:50 Resp 18 10/01/16 13:50 BP 112/63 10/01/16 13:50 Pulse Ox 98 10/01/16 13:50 - Orders/Labs/Meds Orders: Active Orders 24 hr Category Date Time Status EKG Documentation Completion [RC] STAT Care 10/01/16 14:01 Active Chest 1V Frontal [CR] Stat Exams 10/01/16 14:01 Taken TYPE AND SCREEN [BBK] Stat Lab 10/01/16 14:11 Received Sodium Chloride 0.9% [Normal Saline] 1,000 ml Med 10/01/16 14:30 Active IV ASDIRECTED Saline Lock Insert [OM.PC] Stat Oth 10/01/16 14:01 Ordered Medication Orders Sodium Chloride (Normal Saline) 1,000 mls @ 999 mls/hr IV ASDIRECTED ARIELA Last Infusion: 10/01/16 14:45 Dose: 250 mls/hr Admin: 10/01/16 14:42 Dose: 999 mls/hr Labs: Laboratory Tests 10/01/16 10/01/16 10/01/16 Range/Units 14:11 14:11 14:11 WBC 7.84 (4.0-11.0) K/uL RBC 3.56 L (4.50-5.90) M/uL Hgb 10.8 L (13.0-17.0) g/dL Hct 33.0 L (38.0-50.0) % MCV 92.7 (80.0-98.0) fL MCH 30.3 (27.0-32.0) pg MCHC 32.7 (31.0-37.0) g/dL RDW Std Deviation 53.1 (28.0-62.0) fl RDW Coeff of Aidee 16 H (11.0-15.0) % Plt Count 207 (150-400) K/uL MPV 9.90 (7.40-12.00) fL Neut % (Auto) 70.8 (48.0-80.0) % Lymph % (Auto) 21.3 (16.0-40.0) % [place] % (Auto) 6.5 (0.0-15.0) % Eos % (Auto) 0.9 (0.0-7.0) % Baso % (Auto) 0.5 (0.0-1.5) % Neut # (Auto) 5.6 (1.4-5.7) K/uL Lymph # (Auto) 1.7 (0.6-2.4) K/uL [place] # (Auto) 0.5 (0.0-0.8) K/uL Eos # (Auto) 0.1 (0.0-0.7) K/uL Baso # (Auto) 0.0 (0.0-0.1) K/uL Nucleated RBC % 0.4 /100WBC Nucleated RBCs # 0 K/uL Sodium 138 (136-146) mmol/L Potassium 3.8 (3.5-5.1) mmol/L Chloride 105 (98-110) mmol/L Carbon Dioxide 26 (21-31) mmol/L BUN 19 (6.0-23.0) mg/dL Creatinine 1.0 (0.6-1.5) mg/dL Est Cr Clr Drug Dosing 51.57 mL/min Estimated GFR (MDRD) > 60.0 ml/min Glucose 101 (60-110) mg/dL Calcium 8.7 L (8.8-10.8) mg/dL Total Bilirubin 0.4 (0.1-1.5) mg/dL AST 28 (5-40) IU/L ALT 25 (8-54) IU/L Alkaline Phosphatase 59 (40-150) Troponin I < 0.10 (0.0-0.29) NG/ML Total Protein 6.1 (6.0-8.0) g/dL Albumin 3.8 (3.4-4.8) g/dL Globulin 2.3 (2.0-3.5) g/dL Albumin/Globulin Ratio 1.7 (1.3-2.8) Meds: Medications Generic Name Dose Route Start Last Admin Trade Name Freq PRN Reason Stop Dose Admin Sodium Chloride 1,000 mls @ 999 mls/hr 10/01/16 14:30 10/01/16 14:45 Normal Saline IV 250 mls/hr ASDIRECTED ARIELA Infusion Departure - Departure Time of Disposition: 15:02 Disposition: Admitted As Inpatient 64 Condition: Good Clinical Impression: Bradycardia with 41-50 beats per minute, Ventricular bigeminy seen on conveyor monitor - Discharge Information - My Orders Last 24 Hours: My Active Orders 10/01/16 14:01 EKG Documentation Completion [RC] STAT Chest 1V Frontal [CR] Stat Saline Lock Insert [OM.PC] Stat 07/17/17 14:11 TYPE AND SCREEN [BBK] Stat 10/01/16 14:30 Sodium Chloride 0.9% [Normal Saline] 1,000 ml IV ASDIRECTED - Assessment/Plan Last 24 Hours: My Active Orders 10/01/16 14:01 EKG Documentation Completion [RC] STAT Chest 1V Frontal [CR] Stat Saline Lock Insert [OM.PC] Stat 10/01/16 14:11 TYPE AND SCREEN [BBK] Stat 10/01/16 14:30 Sodium Chloride 0.9% [Normal Saline] 1,000 ml IV ASDIRECTED
[2016-10-01] MEDS ORDERED: Sodium Chloride 0.9% 1,000 ML IV SCH (14:30)
[2016-10-01 14:40] LABS: CHLORIDE,CL 105 mmol/L (98-110); SODIUM,NA 138 mmol/L (136-146)
[2016-10-01] MEDS ORDERED: Ondansetron 4 MG Tab.DIS PO PRN (15:02)
[2016-10-01] MEDS ORDERED: Acetaminophen 325 MG Tab PO PRN (15:02)
--- NOTE | 2016-10-01 15:03 | CR ---
EXAMINATION: Portable chest radiograph. HISTORY: Shortness of breath. FINDINGS: The trachea is midline. The cardiomediastinal silhouette is within normal limits. No pulmonary infil trates, effusions or pneumothorax. Osseous structures appear unremarkable. IMPRESSION: No acute cardiopulmonary process.
[2016-10-01] MEDS: Sodium Chloride 0.9% 1,000 ML IV SCH ×2 (15:31→23:28)
--- NOTE | 2016-10-01 18:32 | CONS ---
DATE OF CONSULTATION: 10/01/2016 DATE OF : 1945 PRIMARY CARE PHYSICIAN: None PCP HISTORY OF PRESENT ILLNESS: This is a 70-year-old male with history of hypertension; CAD, status post stent placement several years ago; history of BPH as well as cholesterol problem. He was admitted in the hospital due to the rectal bleeding with anemia; at that time, his anemia was coming down from 41 to 30, the lowest one; however, he also received IV fluids. He just got only 1 unit of blood and he was transferred to [place] and apparently he had a colonoscopy done based on the patient's report. It was told that he has diverticulitis and could be the source of the bleeding and he did not receive additional blood unit. Aspirin and Plavix have been on hold, and he is scheduled to see Dr. Wood next week. He is here in the hospital at this time because of feeling dizzy and he stated he just left the hospital last and he felt like he feels fine back to normal, however, today when he was at work to try to work on his car, he went bending over, he started feeling dizzy, especially when he got up and he started really woozy, but no passing out. He felt like the vision has been turning tobar. No chest pain, no shortness of breath, and no palpitation. In the emergency room, he had a frequent PVCs, that is why I was consulted. PAST MEDICAL HISTORY: Hypercholesteremia; hypertension; CAD, status post PCI several years ago; possible diverticular bleed from the last admission. ALLERGIES: No known drug allergies. REVIEW OF SYSTEMS: Has been negative except indicated in the HPI. PHYSICAL EXAMINATION: VITAL SIGNS: Blood pressure is 95/54; heart rate of 49, 34, but possibly due to the frequent PVCs; O2 saturation is 97 on room air; respirations 16; and temperature 36.6. HEENT: No pallor. No jaundice. No JVD. HEART: Normal S1, S2. No murmur. Frequent extra heartbeat. LUNGS: Clear bilaterally. EXTREMITIES: Legs, no edema. INVESTIGATIONS: CBC showed WBC of 7; hematocrit 33, unchanged; hemoglobin 10, unchanged; and platelets 207, is increasing. Sodium 138, potassium 3.8, chloride 105, bicarbonate 26, BUN 19, creatinine 1, glucose 101, and calcium 8.7. Troponin is less than 0.1. ASSESSMENT AND PLAN: This is a 70-year-old male with history of coronary artery disease, status post percutaneous coronary intervention; hypertension; hyperlipidemia, presented to the hospital because possible near-syncope from low blood pressure. IVF was started and I will get the record from Dr. Wood's office and possibly he needs an echocardiogram to be done and apparently HCT seemed to be unchanged, no clinical sign and symptoms of recurrent bleeding. I will hold off his blood pressure medication until his blood pressure is recovered and I will keep following the patient. ALVERTO URBINA /[id number] LIZETH
--- NOTE | 2016-10-01 19:38 | PCM.HP ---
H&P History of Present Illness - General Date of Service: 10/01/16 Admit Problem/Dx: Admission Diagnosis/Problem Admission Diagnosis/Problem Bradycardia Source of Information: Patient, Family, Old Records, Provider - History of Present Illness Initial Comments - Free Text/Narative: He was seen in the ED today with feelings that everything was going dark. He states it was not exactly like he was about to faint but as it the lights were getting dark similar the the darkening comfort of the evening. In the ED he was noted to be bradycardic with ventricular bigeminy. He was also hypotensive on arrival to the medical floor. He was given intravenous fluids. He had no chest pain. - Related Data Allergies/Adverse Reactions: Allergies Allergy/AdvReac Type Severity Reaction Status Date / Time No Known Allergies Allergy Verified 09/24/16 10:36 Home Medications: Home Meds Atenolol [Atenolol] 25 mg PO DAILY 01/13/16 [History] Clopidogrel Bisulfate [Clopidogrel] 75 mg PO DAILY 01/13/16 [History] Finasteride [Proscar] 5 mg PO DAILY 01/13/16 [History] Isosorbide Mononitrate [Imdur] 30 mg PO DAILY 01/13/16 [History] Lisinopril 5 mg PO DAILY 01/13/16 [History] Simvastatin [Zocor] 10 mg PO BEDTIME 01/13/16 [History] Tamsulosin [Flomax] 0.4 mg PO DAILY 01/13/16 [History] Aspirin [Lucia Chewable] 81 mg PO DAILY 09/24/16 [History] Past Medical History HEENT History: Reports: Impaired Vision Cardiovascular History: Reports: CAD, High Cholesterol, Hypertension Respiratory History: Denies: COPD Gastrointestinal History: Reports: Colon Polyp, GI Bleed, Other (See Below) Other Gastrointestinal History: Diverticulitis Genitourinary History: Reports: BPH. Denies: Chronic Renal Insuffiency Musculoskeletal History: Denies: Muscular Dystrophy Neurological History: Denies: CVA Endocrine/Metabolic History: Denies: Ludwig's Disease, Diabetes, Type I, Diabetes, Type II Oncologic (Cancer) History: Reports: None - Past Surgical History Cardiovascular Surgical History: Reports: Coronary Artery Stent Social & Family History - Family History Family Medical History: Noncontributory - Tobacco Use Smoking Status *Q: Current Every Day Smoker Years of Tobacco use: 50 Packs/Tins Daily: 0.5 Used Tobacco, but Quit: No Second Hand Smoke Exposure: No - Caffeine Use Caffeine Use: Reports: Coffee Caffeine Use Comment: 3 cups avg per day - Recreational Drug Use Recreational Drug Use: No H&P Review of Systems - Review of Systems: Review Of Systems: See Below General: Denies: Fever, Chills Pulmonary: Denies: Shortness of Breath, Cough, Sputum Cardiovascular: Denies: Chest Pain Gastrointestinal: Denies: Abdominal Pain, Anorexia, Black Stool, Bloody Stool, Hematemesis, Hematochezia, Melena Genitourinary: Denies: Dysuria, Hematuria Psychiatric: Denies: Confusion, Agitation Review of Systems Comment:: recent hospitalization for GI bleeding; status post colonscopy and removal of polyps. Exam - Exam Exam: See Below - Vital Signs Vital Signs: Last Vital Signs Temp 97.9 F 10/01/16 15:25 Pulse 56 L 10/01/16 15:25 Resp 16 10/01/16 15:25 BP 116/48 L 10/01/16 15:25 Pulse Ox 97 10/01/16 15:25 Weight: 76.1 kg - Exam General: Alert, Oriented HEENT: EOMI Lungs: Clear to Auscultation, Normal Respiratory Effort Cardiovascular: Regular Rate, Regular Rhythm Abdomen: Soft. No: Distention, Tenderness (Male) Exam: Deferred Rectal (Males) Exam: Deferred Extremities: No: Edema Neurological: Cranial Nerves Intact, Normal Speech Neuro Extensive - Motor, Sensory, Reflexes: CN II-XII Intact. No: Facial palsy (L), Facial Palsy (R), Hemeplagia (R), Hemeplagia (L) Psychiatric: No: Agitated - Patient Data Result Diagrams: 10/01/16 14:11 10/01/16 14:11 Rahul Results Last 24 hrs: EKG: sinus bradycardia with ventricular bigeminy *Q Meaningful Use (ADM) - VTE *Q VTE Criteria *Q: - Stroke *Q Stroke Criteria *Q: - AMI *Q AMI Criteria *Q: - Problem List (1) Bradycardia with 41-50 beats per minute SNOMED Code(s): 83908720 ICD Code: R00.1 - BRADYCARDIA, UNSPECIFIED Status: Acute Current Visit: Yes (2) Ventricular bigeminy seen on school bus monitor SNOMED Code(s): 93626562 ICD Code: R00.8 - OTHER ABNORMALITIES OF HEART BEAT Status: Acute Current Visit: Yes Problem List Initiated/Reviewed/Updated: Yes Orders Last 24hrs: Active Orders 24 hr Category Date Time Status Telemetry Monitoring [Cardiac Monitoring] [RC] Q8H Care 10/01/16 14:55 Active Echo Comp wo Cont [US] Routine Exams 10/01/16 17:36 Ordered Head wo Cont [CT] Routine Exams 10/01/16 15:25 Taken Aspirin Med 10/02/16 09:00 Active 81 mg PO DAILY Finasteride [Proscar] Med 10/02/16 09:00 Active 5 mg PO DAILY Simvastatin [Zocor] Med 10/01/16 21:00 Active 10 mg PO BEDTIME Sodium Chloride 0.9% [Normal Saline] 1,000 ml Med 10/01/16 15:30 Active IV ASDIRECTED Medication Orders Acetaminophen (Tylenol) 650 mg PO Q4H PRN PRN Reason: Pain (Mild 1-3)/fever Aspirin (Aspirin) 81 mg PO DAILY ARIELA Finasteride (Proscar) 5 mg PO DAILY ARIELA Sodium Chloride (Normal Saline) 1,000 mls @ 150 mls/hr IV ASDIRECTED ARIELA Last Admin: 10/01/16 15:31 Dose: 150 mls/hr Ondansetron HCl (Zofran Odt) 4 mg PO Q4H PRN PRN Reason: nausea, able to take PO Simvastatin (Zocor) 10 mg PO BEDTIME ARIELA Assessment/Plan Comment:: 10/01/2016: thank you to Dr Sanchez for his kind consultation. hold atenolol echo if no recent echo found. telemetry
[2016-10-01] MEDS ORDERED: Simvastatin 10 MG Tab PO SCH (21:00)
[2016-10-02 05:22] LABS: CHLORIDE,CL 111 mmol/L (98-110); SODIUM,NA 141 mmol/L (136-146)
[2016-10-02] MEDS: Sodium Chloride 0.9% 1,000 ML IV SCH (06:13)
[2016-10-02] MEDS ORDERED: Clopidogrel 75 MG Tab PO SCH (09:00)
[2016-10-02] MEDS ORDERED: Finasteride 5 MG Tab PO SCH (09:00)
[2016-10-02] MEDS ORDERED: Magnesium Sulfate/Water 2 GM in Premix Bag 1 BAG IV ONE (09:00)
[2016-10-02] MEDS ORDERED: Aspirin 81 MG Tab.Chew PO SCH (09:00)
[2016-10-02] MEDS ORDERED: Isosorbide Mononitrate 30 MG Tab.ER PO SCH (09:00)
[2016-10-02] MEDS ORDERED: Lisinopril 5 MG Tab PO SCH (09:00)
[2016-10-02] MEDS ORDERED: Tamsulosin 0.4 MG Cap.ER PO SCH (09:00)
[2016-10-02 11:09] VITALS: BP 145/74
[2016-10-02] MEDS ORDERED: Atenolol 25 MG Tab PO ONE (12:00)
--- NOTE | 2016-10-02 12:54 | PCM.DCSUM1 ---
Discharge Summary - Hospital Course Brief History: he was admitted with feelings of his vision going dark. He was noted to have a sinus bradycardia, hypotension and ventricular bigeminy on admission. 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 Telemetry continues to show ventricular bigeminy. He was given intravenous fluids. His blood pressure improved He feels much better at discharge. His head CT did not show any acute abnormality He had undergone colon polyp removal by colonoscopy about a week ago with no recurrence of visible rectal bleeding since that time. He has no chest pain at discharge Dr Marrero was consulted. Echo was performed which showed an LVEF of 40-45% As per Dr Marrero's recommendation, the atenolol dose will be decreased to 12.5 mg daily at discharge and the patient will follow up with Dr Wood next week when he is here in [place]. I discussed with the patient and his family the possibility of concurrent cerebrovascular disease as an etiology of his symptoms Because of hypotension his imdur is discontinued. They voice understanding. Holter monitor being placed at discharge with results forwarded to Dr Wood as per Dr Marrero's recommendation. Shine Almendarez MD - Discharge Plan Prescriptions/Med Rec: Atenolol [Tenormin] 25 mg PO DAILY #30 tablet Home Medications: Home Meds Clopidogrel Bisulfate [Clopidogrel] 75 mg PO DAILY 01/13/16 [History] Finasteride [Proscar] 5 mg PO DAILY 01/13/16 [History] Lisinopril 5 mg PO DAILY 01/13/16 [History] Simvastatin [Zocor] 10 mg PO BEDTIME 01/13/16 [History] Tamsulosin [Flomax] 0.4 mg PO DAILY 01/13/16 [History] Aspirin [Lucia Chewable Aspirin] 81 mg PO DAILY 09/24/16 [History] Atenolol 25 mg PO DAILY #0 10/02/16 [Rx] Atenolol [Tenormin] 25 mg PO DAILY #30 tablet 10/02/16 [Rx] Patient Handouts: Holter Monitoring, Premature Ventricular Contraction, Bradycardia Referrals: [facility] [Outside] [facility] [Outside] Rui Packer MD [Primary Care Provider] - 10/08/16 12:45 pm William Wood MD [Ordering Only Provider] - 10/10/16 11:30 am - Patient Data Vitals - Most Recent: Last Vital Signs Temp 97.7 F 10/02/16 11:07 Pulse 56 L 10/01/16 15:25 Resp 18 10/02/16 11:07 BP 145/74 H 10/02/16 11:11 Pulse Ox 98 10/02/16 11:07 Weight - Most Recent: 76 kg I&O - Last 24 hours: Intake & Output 10/01/16 10/02/16 10/02/16 22:59 06:59 14:59 Intake Total 900 2250 50 Output Total 600 1570 1100 Balance 300 680 -1050 Lab Results - Last 24 hrs: Laboratory Results - last 24 hr 10/02/16 10/02/16 Range/Units 04:55 04:55 WBC 5.73 (4.0-11.0) K/uL RBC 3.28 L (4.50-5.90) M/uL Hgb 9.9 L (13.0-17.0) g/dL Hct 30.3 L (38.0-50.0) % MCV 92.4 (80.0-98.0) fL MCH 30.2 (27.0-32.0) pg MCHC 32.7 (31.0-37.0) g/dL RDW Std Deviation 53.1 (28.0-62.0) fl RDW Coeff of Aidee 16 H (11.0-15.0) % Plt Count 175 (150-400) K/uL MPV 9.50 (7.40-12.00) fL Neut % (Auto) 56.2 (48.0-80.0) % Lymph % (Auto) 33.7 (16.0-40.0) % [place] % (Auto) 6.8 (0.0-15.0) % Eos % (Auto) 2.6 (0.0-7.0) % Baso % (Auto) 0.7 (0.0-1.5) % Neut # (Auto) 3.2 (1.4-5.7) K/uL Lymph # (Auto) 1.9 (0.6-2.4) K/uL [place] # (Auto) 0.4 (0.0-0.8) K/uL Eos # (Auto) 0.2 (0.0-0.7) K/uL Baso # (Auto) 0.0 (0.0-0.1) K/uL Nucleated RBC % 0.3 /100WBC Nucleated RBCs # 0 K/uL Sodium 141 (136-146) mmol/L Potassium 4.5 (3.5-5.1) mmol/L Chloride 111 H (98-110) mmol/L Carbon Dioxide 26 (21-31) mmol/L BUN 15 (6.0-23.0) mg/dL Creatinine 0.9 (0.6-1.5) mg/dL Est Cr Clr Drug Dosing 78.70 mL/min Estimated GFR (MDRD) > 60.0 ml/min Glucose 97 (60-110) mg/dL Calcium 7.7 L (8.8-10.8) mg/dL Magnesium 1.6 (1.5-2.3) mEq/L Med Orders - Current: Current Medications Acetaminophen (Tylenol) 650 mg PO Q4H PRN PRN Reason: Pain (Mild 1-3)/fever Aspirin (Aspirin) 81 mg PO DAILY [facility] Last Admin: 10/02/16 08:12 Dose: 81 mg Atenolol (Tenormin) 12.5 mg PO DAILY [facility] Finasteride (Proscar) 5 mg PO DAILY [facility] Last Admin: 10/02/16 08:12 Dose: 5 mg Ondansetron HCl (Zofran Odt) 4 mg PO Q4H PRN PRN Reason: nausea, able to take PO Simvastatin (Zocor) 10 mg PO BEDTIME [facility] Last Admin: 10/01/16 20:20 Dose: 10 mg Discontinued Medications Atenolol (Tenormin) 12.5 mg PO ONETIME ONE Stop: 10/02/16 12:01 Last Admin: 10/02/16 11:11 Dose: 12.5 mg Clopidogrel Bisulfate (Plavix) 75 mg PO DAILY ARIELA Sodium Chloride (Normal Saline) 1,000 mls @ 999 mls/hr IV ASDIRECTED ARIELA Last Infusion: 10/01/16 14:45 Dose: 250 mls/hr Sodium Chloride (Normal Saline) 1,000 mls @ 150 mls/hr IV ASDIRECTED ARIELA Last Admin: 10/02/16 06:13 Dose: 150 mls/hr Magnesium Sulfate 2 gm/ Premix 50 mls @ 50 mls/hr IV ONETIME ONE Stop: 10/02/16 09:59 Last Admin: 10/02/16 09:01 Dose: 50 mls/hr Isosorbide Mononitrate (Imdur) 30 mg PO DAILY ARIELA Lisinopril (Prinivil) 5 mg PO DAILY RAIELA Tamsulosin HCl (Flomax) 0.4 mg PO DAILY ARIELA *Q Meaningful Use (DIS) - VTE *Q VTE Criteria *Q: - Stroke *Q Stroke Criteria *Q: - AMI *Q AMI Criteria *Q:
--- NOTE | 2016-10-02 13:01 | CT ---
EXAM DATE: 10/01/16 PATIENT'S AGE: 70 Patient: DOROTHY KILLIAN Facility: [place], [place] Site . Site : 1945 Study: CT Head [id number] 5:28:47 PM Ordering Physician: Erickson Riojas Final Report: Indication: Amaurosis fugax. Comparison none. Technique: Axial CT of the head without contrast. Findings: Mild generalized volume loss. Patchy low-attenuation change within the white matter consistent with chronic small vessel ischemic changes. No intracranial hemorrhage, acute infarct, mass effect, or fracture. No midline shift. No abnormal ventricular dilatation. Normal calvarium and skull base. Visualized paranasal sinuses and mastoid air cells are clear. Impression: 1. No acute intracranial abnormality. 2. Mild generalized volume loss. Chronic deep white matter small vessel ischemic changes. Please note that all CT scans at this facility use dose modulation, iterative reconstruction, and/or weight-based dosing when appropriate to reduce radiation dose to as low as reasonably achievable. Dictated by Db Veras MD @ Oct 01 2016 5:33PM (Electronic Signature) Report Signed by Proxy. [facility]
--- NOTE | 2016-10-02 14:43 | ECHO ---
EXAM DATE: 10/01/16 PATIENT'S AGE: 70 The echocardiogram report can be seen in this patient's EMR (Electronic Medical Record) in the Reports section. The report has also been scanned into PACS. LIZETH
[2016-10-03] MEDS ORDERED: Atenolol 25 MG Tab PO SCH (09:00)
--- NOTE | 2016-10-03 17:45 | PCM.PN ---
- General Info Date of Service: 10/02/16 Admission Dx/Problem (Free Text): 70M CAD s/p PCI with near syncope low BP recent GIB Subjective Update: he felt well no dizziness BP improved, still have PVCs Functional Status: Reports: Pain Controlled - Review of Systems General: Reports: No Symptoms HEENT: Reports: No Symptoms Pulmonary: Reports: No Symptoms Cardiovascular: Reports: No Symptoms Gastrointestinal: Reports: No Symptoms Genitourinary: Reports: No Symptoms Musculoskeletal: Reports: No Symptoms Skin: Reports: No Symptoms Neurological: Reports: No Symptoms Psychiatric: Reports: No Symptoms - Patient Data Vitals - most recent: Last Vital Signs Temp 36.5 C 10/02/16 11:07 Pulse 56 L 10/01/16 15:25 Resp 18 10/02/16 11:07 BP 145/74 H 10/02/16 11:11 Pulse Ox 98 10/02/16 11:07 Weight - most recent: 76 kg Med Orders - Current: Current Medications Discontinued Medications Acetaminophen (Tylenol) 650 mg PO Q4H PRN PRN Reason: Pain (Mild 1-3)/fever Aspirin (Aspirin) 81 mg PO DAILY [facility] Last Admin: 10/02/16 08:12 Dose: 81 mg Atenolol (Tenormin) 12.5 mg PO DAILY [facility] Atenolol (Tenormin) 12.5 mg PO ONETIME ONE Stop: 10/02/16 12:01 Last Admin: 10/02/16 11:11 Dose: 12.5 mg Clopidogrel Bisulfate (Plavix) 75 mg PO DAILY [facility] Finasteride (Proscar) 5 mg PO DAILY [facility] Last Admin: 10/02/16 08:12 Dose: 5 mg Sodium Chloride (Normal Saline) 1,000 mls @ 999 mls/hr IV ASDIRECTED [facility] Last Infusion: 10/01/16 14:45 Dose: 250 mls/hr Sodium Chloride (Normal Saline) 1,000 mls @ 150 mls/hr IV ASDIRECTED [facility] Last Admin: 10/02/16 06:13 Dose: 150 mls/hr Magnesium Sulfate 2 gm/ Premix 50 mls @ 50 mls/hr IV ONETIME ONE Stop: 10/02/16 09:59 Last Admin: 10/02/16 09:01 Dose: 50 mls/hr Isosorbide Mononitrate (Imdur) 30 mg PO DAILY [facility] Lisinopril (Prinivil) 5 mg PO DAILY [facility] Ondansetron HCl (Zofran Odt) 4 mg PO Q4H PRN PRN Reason: nausea, able to take PO Simvastatin (Zocor) 10 mg PO BEDTIME [facility] Last Admin: 10/01/16 20:20 Dose: 10 mg Tamsulosin HCl (Flomax) 0.4 mg PO DAILY [facility] - Exam General: alert, oriented HEENT: Pupils equal, Pupils reactive Neck: supple Lungs: Clear to Auscultation Cardiovascular: Regular Rate, Regular Rhythm, Other (extra heart beats) GI/Abdominal Exam: Normal Bowel Sounds, Soft (Male) Exam: No Hernia, Normal Inspection Back Exam: Normal Inspection Extremities: Normal Inspection, No Pedal Edema EKG INTERPRETATION Rhythm: Other (PVCs) - Problem List Review Problem List Initiated/Reviewed/Updated: Yes - Plan Plan:: 70M CAD s/p PCI with recent GIB with near syncope due to low BP - improved, after IVF, BP meds on hold, will resume half dose of atenolol, and continue to hold ACEI, he will see Dr. Wood next week. - Echo pending
== END 2016-10-02 14:14 | disposition home or self-care (01) ==
LOC: MW.ED 13:39 → UNDOADMOB 15:00 → MW.ICU 15:00
PROVIDERS: ADMIT Family Medicine; ATTEND Family Medicine
DX: R00.1 Bradycardia, unspecified (principal); R00.8 Other abnormalities of heart beat; I25.10 Atherosclerotic heart disease of native coronary artery without angina pectoris; I10 Essential (primary) hypertension; E78.00 Pure hypercholesterolemia, unspecified; N40.0 Benign prostatic hyperplasia without lower urinary tract symptoms; Z79.82 Long term (current) use of aspirin; Z79.899 Other long term (current) drug therapy; Z95.5 Presence of coronary angioplasty implant and graft; F17.210 Nicotine dependence, cigarettes, uncomplicated; E27.1 Primary adrenocortical insufficiency
CPT/HCPCS: 36415; 70450; 71010; 80048; 80053; 83735; 84484; 85025; 86850; 86900; 86901; 93005; 93306; 96361; 96365; 99285; A9270; G0378; J3475; J7040; 96360; 99284

== ENCOUNTER 2016-12-02 15:17 | Emergency (ER) | payer MEDICARE, BC ==
--- NOTE | 2016-12-02 15:24 | EDM.PDOC ---
ED HPI GENERAL MEDICAL PROBLEM - General Chief Complaint: Gastrointestinal Problem Stated Complaint: CONSTIPATION Time Seen by Provider: 12/02/16 15:20 Source of Information: Reports: Patient History Limitations: Reports: No Limitations - History of Present Illness INITIAL COMMENTS - FREE TEXT/NARRATIVE: HISTORY AND PHYSICAL: History of present illness: [Patient comes to emergency room complaining of feeling constipated. Last bowel movement 3 days ago. He denies any narcotic use. Had been taking MiraLAX on and off for the past couple of weeks but stopped 2 days prior to his last bowel movement. He denies abdominal pain fever and chills. Appetite is normal. He feels as though his abdomen is full of stool, but he has not been able to pass it yet. He is afraid that he may experience bleeding when passing hard stool. He has no other complaints or concerns at this time. Denies burning with urination. Reports a lifelong history of constipation. Last colonoscopy was in September 2016. Was told that he had 4 polyps which were benign and several internal hemorrhoids. He follows regularly with Dr. Packer at [facility]] Review of systems: As per history of present illness and below otherwise all systems reviewed and negative. Past medical history: As per history of present illness and as reviewed below otherwise noncontributory. Surgical history: As per history of present illness and as reviewed below otherwise noncontributory. Social history: No reported history of drug or alcohol abuse. Family history: As per history of present illness and as reviewed below otherwise noncontributory. Physical exam: HEENT: Atraumatic, normocephalic. Oral mucous members are pink and moist., pupils reactive, negative for conjunctival pallor or scleral icterus, mucous membranes moist, throat clear, neck supple, nontender, trachea midline. Lungs: Clear to auscultation, breath sounds equal bilaterally. Heart: S1S2, regular rate and rhythm. No murmur gallop click or rub. Abdomen: Bowel sounds are normoactive throughout. Abdomen is soft and nondistended. He is nontender with palpation. No masses guarding or rebound. Soft, nondistended, nontender. Negative for costovertebral tenderness. Pelvis: Stable nontender. Genitourinary: Deferred. Rectal: No external hemorrhoids appreciated on expectorant. Sphincter tone is normal. Large amount of hard stool is palpated. Guaiac negative. Extremities: Atraumatic,. Neuro: Awake, alert, oriented. Motor and sensory unremarkable throughout. Exam nonfocal. Impression: [Constipation] Plan: [Encouraged him to push fluids, drink prune juice. Discussed using a fleets enema to get the low-lying stool moving. He is to resume MiraLAX until he can review with Dr. Packer. Discussed that he may experience some bleeding in passing a large, hard stool if he has internal hemorrhoids. Follow-up with Dr. Packer in the next couple of days. He is in agreement with today's plan. All of his questions are answered and concerns are addressed.] Definitive disposition and diagnosis as appropriate pending reevaluation and review of above. - Related Data Allergies Allergy/AdvReac Type Severity Reaction Status Date / Time No Known Allergies Allergy Verified 12/02/16 15:24 Home Meds: Home Meds Clopidogrel Bisulfate [Clopidogrel] 75 mg PO DAILY 01/13/16 [History] Finasteride [Proscar] 5 mg PO DAILY 01/13/16 [History] Lisinopril 5 mg PO DAILY 01/13/16 [History] Simvastatin [Zocor] 10 mg PO BEDTIME 01/13/16 [History] Tamsulosin [Flomax] 0.4 mg PO DAILY 01/13/16 [History] Aspirin [Lucia Chewable Aspirin] 81 mg PO DAILY 09/24/16 [History] Atenolol 25 mg PO DAILY #0 10/02/16 [Rx] Atenolol [Tenormin] 25 mg PO DAILY #30 tablet 10/02/16 [Rx] Isosorbide Mononitrate [Isosorbide Mononitrate ER] 30 mg PO DAILY 10/02/16 [ History] Past Medical History HEENT History: Reports: Impaired Vision Cardiovascular History: Reports: CAD, High Cholesterol, Hypertension Gastrointestinal History: Reports: Colon Polyp, GI Bleed, Other (See Below) Other Gastrointestinal History: Diverticulitis Genitourinary History: Reports: BPH. Denies: Chronic Renal Insuffiency Oncologic (Cancer) History: Reports: None - Past Surgical History Cardiovascular Surgical History: Reports: Coronary Artery Stent Social & Family History - Family History Family Medical History: Noncontributory - Tobacco Use Smoking Status *Q: Current Every Day Smoker Years of Tobacco use: 50 Packs/Tins Daily: 0.5 Used Tobacco, but Quit: No Second Hand Smoke Exposure: No - Caffeine Use Caffeine Use: Reports: Coffee Caffeine Use Comment: 3 cups avg per day - Recreational Drug Use Recreational Drug Use: No ED ROS GENERAL - Review of Systems Review Of Systems: ROS reveals no pertinent complaints other than HPI. ED EXAM, GI/ABD - Physical Exam Exam: See Below Course - Vital Signs Last Recorded V/S: Last Vital Signs Temp 97.5 F 12/02/16 15:24 Pulse 63 12/02/16 15:24 Resp 16 12/02/16 15:24 BP 165/72 H 12/02/16 15:24 Pulse Ox 98 12/02/16 15:24 Departure - Departure Time of Disposition: 15:55 Disposition: Home, Self-Care 01 Condition: Good Clinical Impression: Constipation - Discharge Information Instructions: Constipation, Adult Referrals: Rui Packer MD [Primary Care Provider] - Forms: ED Department Discharge Additional Instructions: The following information is given to patients seen in the emergency department who are being discharged to home. This information is to outline your options for follow-up care. We provide all patients seen in our emergency department with a follow-up referral. The need for follow-up, as well as the timing and circumstances, are variable depending upon the specifics of your emergency department visit. If you don't have a primary care physician on staff, we will provide you with a referral. We always advise you to contact your personal physician following an emergency department visit to inform them of the circumstance of the visit and for follow-up with them and/or the need for any referrals to a consulting specialist. The emergency department will also refer you to a specialist when appropriate. This referral assures that you have the opportunity for follow-up care with a specialist. All of these measure are taken in an effort to provide you with optimal care, which includes your follow-up. Under all circumstances we always encourage you to contact your private physician who remains a resource for coordinating your care. When calling for follow-up care, please make the office aware that this follow-up is from your recent emergency room visit. If for any reason you are refused follow-up, please contact the [facility] emergency department at and asked to speak to the emergency department charge nurse. [facility] [address] [place] [address] Follow-up with your primary care provider or at the clinic listed above in 48 hours. Drink prune juice, use a fleets enema as directed on the box. Take MiraLAX once daily until you can follow-up with PCP. Return to ER as needed as discussed.
[2016-12-02 16:05] VITALS: BP 134/73
== END 2016-12-02 16:05 | disposition home or self-care (01) ==
LOC: MW.ED 15:17
DX: K59.00 Constipation, unspecified (principal); E78.00 Pure hypercholesterolemia, unspecified; I10 Essential (primary) hypertension; I25.10 Atherosclerotic heart disease of native coronary artery without angina pectoris; F17.210 Nicotine dependence, cigarettes, uncomplicated; Z79.899 Other long term (current) drug therapy; Z79.82 Long term (current) use of aspirin
CPT/HCPCS: 99282; 99283